=== PATIENT | male | born 1975 | race Two or more races ===

== ENCOUNTER 2020-08-16 11:29 | Emergency (ER) | payer OTHER, SELFPAY ==
--- NOTE | ~2020-08-16 | US_ITS ---
EXAMINATION: US VENOUS ULTRASOUND WITH DOPPLER LOWER EXTREMITY, LEFT CLINICAL INFORMATION: Left lower extremity swelling. COMPARISON: None TECHNIQUE: Ultrasound of the deep veins is performed from the hip to the calf with compression sonography and color and pulse Doppler assessment. Spectral analysis with color-flow imaging is performed. FINDINGS: There is normal venous compression and respiratory variation and augmented flow. The visualized common femoral vein, superficial femoral vein, profunda femoral vein, popliteal vein, and the trifurcation region shows no evidence of deep venous thrombosis. There is no popliteal cyst. Mild to moderate subcutaneous edema is seen in the left calf. A left inguinal lymph node measures 3.7 cm in long axis. If the patient's symptoms persist, followup ultrasound in 5 days 7 days might be of value to exclude proximal propagation from a non-visualized calf vein. US/US venous duplex LE IMPRESSION: 1. No evidence for deep venous thrombosis in the visualized veins of the left lower extremity. 2. Mild to moderate subcutaneous edema in the left calf. 3. Mildly enlarged left inguinal lymph nodes are nonspecific, but may be reactive. Correlate with physical exam and patient history.
[2020-08-16 11:32] VITALS: BP 135/48; PULSE 95; RESP 16; TEMP 36.7; O2SAT 93; BMI 64.6
--- NOTE | 2020-08-16 11:56 | ED_ITS ---
HPI - Extremity Problem General Chief complaint: Extremity Problem Stated complaint: dvt? Time Seen by Provider: 08/16/20 11:54 Source: patient Mode of arrival: ambulatory Limitations: no limitations History of Present Illness HPI Narrative: 44 years old male came in for evaluation of left leg swelling. Patient just had a long road trip driving to [place] to [place] to [place] then back to [place], PATIENT DOES HAVE LEFT LEG SWELLING BUT AFTER THE TRIP SWELLING IS WORSE, no shortness of breath, no chest pain, no history of DVT. Related Data Home Medications Medication Instructions Recorded Confirmed aripiprazole 300 mg intramuscular 300 mg IM 08/16/20 suspension,extended release aripiprazole 400 mg suspension, 400 mg IM 08/16/20 extended rel.intramuscular syringe dextroamphetamine-amphetamine ER 1 cap PO BID 08/16/20 20 mg 24hr capsule,extend release diclofenac 75 mg-misoprostol 200 1 tab PO TID 08/16/20 mcg tablet,immediate,delayed release gabapentin 800 mg tablet 800 mg PO TID 08/16/20 lamotrigine 200 mg tablet 200 mg PO DAILY 08/16/20 prazosin 1 mg capsule 0 mg PO 08/16/20 Allergies Allergy/AdvReac Type Severity Reaction Status Date / Time No Known Allergies Allergy Unverified 12/27/19 15:17 Review of Systems Review of Systems: All other systems are reviewed and are negative Constitutional: Reports as per HPI and Reports no additional constitutional complaints Eyes: Reports as per HPI and Reports no additional eye complaints Reports system reviewed and no additional complaints, except as documented Cardiovascular: Reports as per HPI and Reports no additional cardiovascular complaints Respiratory: Reports as per HPI and Reports no additional respiratory complaints Gastrointestinal: Reports as per HPI and Reports no additional gastrointestinal complaints Genitourinary: Reports no additional female genitourinary complaints Musculoskeletal: Reports no additional musculoskeletal complaints Skin/Breast: Reports system reviewed and no additional complaints, except as docu Psychiatric: Reports no additional psychiatric complaints Endocrine: Reports no additional endocrine complaints Hematologic/Lymphatic: Reports no additional hematologic/lymphatic complaints Allergic/Immunologic: Reports no additional allergic/immunologic complaints Reports system reviewed and no additional complaints, except as documented and Reports Abnormal speech present [facility] Past Medical History Medical History Obesity Pinched nerve Smoker Social History Social History Advance Directives: No Advance Directives Information Provided: No Physical Exam Vital Signs: Vital Signs: Last Vital Signs Temp 98.1 F 08/16/20 11:32 Pulse 95 08/16/20 11:32 Resp 16 08/16/20 11:32 BP 135/48 L 08/16/20 11:32 Pulse Ox 93 08/16/20 11:32 Body Mass Index 64.6 Vital signs have been reviewed as appeared to be correct. Blood pressure normal. Heart rate normal. Respiration rate normal. Temperature normal. Oxygen saturation normal. Appearance: Alert. Oriented X3. No acute distress. Head: Normal external exam. Normocephalic. Atraumatic. No Craig signs noted. No raccoon eyes noted Eyes: PERRLA. EOMI. Conjunctiva and sclera normal. Eyelids normal. ENT: TM's Normal. Pharynx normal. Uvula midline. Moist mucous membranes. No trismus noted. No drooling noted. No muffled voice noted. Neck: Normal inspection. Neck supple. FROM. No adenopathy. Thyroid Normal. No meningeal signs. No neck mass noted. CVS: Normal heart rate and rhythm. Heart sound normal. No murmurs noted. Pulses normal throughout. Respiratory: No respiratory distress. Painless inspiration. Breath sounds normal. No wheezes/rales/rhonchi noted. Chest nontender. No accessory muscle usage noted or decreased air movement noted. Abdomen: Soft and nontender. Bowel sounds normal in all 4 quadrants. No distention noted. No organomegaly noted. No visible injury noted. Back: No CVA tenderness. Full range of motion noted. Skin: Skin warm and dry. Normal skin color. Normal skin turgor. No rashes/lesions/lacerations noted. Extremities: Left lower extremity is +3 edema, no calf tenderness. Neuro: Oriented X 3. No motor deficit. No sensory deficit. Reflexes normal. Discharge Plan Discharge Prescriptions: No Action gabapentin 800 mg tablet 800 mg PO TID RF: 0 dextroamphetamine-amphetamine 20 mg capsule,extended release 24hr 1 cap PO BID RF: 0 Abilify Maintena 400 mg suspension,extended rel syring 400 mg IM RF: 0 prazosin 1 mg capsule 0 mg PO RF: 0 lamotrigine 200 mg tablet 200 mg PO DAILY RF: 0 Abilify Maintena 300 mg suspension,extended rel recon 300 mg IM RF: 0 diclofenac-misoprostol 75-200 mg-mcg tablet,IR,delayed rel,biphasic 1 tab PO TID RF: 0
[2020-08-16 12:13] VITALS: BP 126/68; PULSE 97; RESP 20; O2SAT 94
[2020-08-16 12:15] LABS: MANUAL DIFF FLAG NO
[2020-08-16 12:17] LABS: Basophils Absolute Auto 0.1 X10*3/uL (0.0-0.2); Basophils Percent Auto 0.7 % (0-2); Eosinophils Absolute Auto 0.2 X10*3/uL (0.0-0.4); Hematocrit 46.9 % (42-52); Hemoglobin 14.8 g/dl (14.0-18.0); Imm Gran Abs Auto 0.03 X10*3/uL (0.00-0.03); Imm Gran Pct Auto 0.4 % (0.0-0.4); Lymphocytes Absolute Auto 1.7 X10*3/uL (1.2-4.9); Lymphocytes Percent Auto 20.2 % (20-40); Mean Corpuscular HGB Conc 31.6 g/dl (31.0-36.0); Mean Corpuscular Hemoglobin 28.2 pg (27.0-33.0); Mean Corpuscular Volume 89.5 fL (80-98); Mean Platelet Volume 8.5 fL (9.4-12.4); Monocytes Absolute Auto 0.4 X10*3/uL (0.1-1.2); Monocytes Percent Auto 4.9 % (2-11); Neutrophils Percent Auto 71.8 % (45-73); Platelet Count 263 X10*3/uL (160-400); Red Blood Count 5.24 X10*6/uL (4.60-5.80); Red Cell Distribution Width 13.9 % (11.0-16.0); White Blood Count 8.3 X10*3/uL (4.8-10.8)
--- NOTE | 2020-08-16 12:18 | PC.NURSE ---
right foot pulse palpable to touch. left foot pulse found with dopplar. patient waiting to go to ultrasound
[2020-08-16 12:41] LABS: Alanine Aminotransferase 50 U/L (0-40); Alkaline Phosphatase 89 U/L (39-117); Anion Gap 14 (12-20); Aspartate Amino Transferase 28 U/L (5-37); Bilirubin Direct < 0.2 mg/dL (0.0-0.5); Bilirubin Total 0.3 mg/dL (0.0-1.0); Blood Urea Nitrogen 16 mg/dL (9-16); Calcium 9.2 mg/dL (8.4-10.2); Carbon Dioxide 27 mmol/L (22-29); Chloride 103 mmol/L (96-108); Creatinine Clr Calc Pharmacy 186.1; Estimated Glomerular Filt Rate > 60; Glucose Random 108 mg/dL (60-115); Lipase 28 U/L (8-78); Potassium 4.1 mmol/L (3.3-5.1); Sodium 140 mmol/L (135-145); Total Protein 7.3 g/dL (6.5-8.0)
[2020-08-16 13:51] VITALS: BP 119/48; PULSE 83; RESP 15; O2SAT 92
--- NOTE | 2020-08-16 14:20 | PC.NURSE ---
patient not found to be in room or any bathrooms in ED, patient eloped
[2020-08-16 15:08] LABS: B Type Natriuretic Peptide < 10 pg/mL (<100)
== END 2020-08-16 14:20 | disposition left against medical advice (07) ==
PROVIDERS: Emergency Provider Emergency Medicine
DX: R60.0 Localized edema (principal)
CPT/HCPCS: 36415; 80048; 80076; 82550; 83690; 83880; 85025; 93971; 99284

== ENCOUNTER 2021-11-16 08:05 | Outpatient (REF) | payer OTHER, SELFPAY ==
--- NOTE | ~2021-11-16 | XR_ITS ---
EXAMINATION: XR PELVIS CLINICAL INFORMATION: Pain COMPARISON: None TECHNIQUE: AP view of the pelvis. FINDINGS: Bone alignment is normal. No fracture or dislocation is seen. There is severe arthritis of the right hip joint with joint space narrowing, osteophyte and subchondral cyst formation. The left hip joint is normal. Bones of the pelvis are normal. Soft tissues are normal XR/XR pelvis 1-2V IMPRESSION: Severe right hip arthritis.
== END 2021-11-16 08:06 | disposition home or self-care (01) ==
LOC: HO.HOSX 08:05
PROVIDERS: Visit Provider Orthopaedic Surgery
DX: M16.11 Unilateral primary osteoarthritis, right hip (principal)
CPT/HCPCS: 72170; 99202

== ENCOUNTER 2024-08-16 09:35 | Outpatient (REF) | payer OTHER, SELFPAY ==
--- OUTSIDE RECORDS SUMMARY | 2024-08-21 10:16 | XMS_ITS | Patient Health Record ---
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 [facility] [place] [address] [id number] Butch Delgadoo Self - patient is the insured 4 [place] Medicaid Standard [address] [place] [address] [phone] [id number] Bunny Delgado Self - patient is the insured 4
== END 2024-08-16 09:36 | disposition home or self-care (01) ==
LOC: HO.HOSX 09:35
PROVIDERS: Visit Provider Physician Assistant
DX: Z13.89 Encounter for screening for other disorder (principal)